=== PATIENT | female | born 1945 | race Caucasian/White ===

== ENCOUNTER 2019-11-08 10:32 | Outpatient (CLI) | payer MEDICARE, BC | END 2019-11-08 23:59 | disposition home or self-care (01) | LOC: CFH 10:32 | PROVIDERS: ATTEND Nurse Practitioner | DX: M81.0 Age-related osteoporosis without current pathological fracture (principal); M85.80 Other specified disorders of bone density and structure, unspecified site | CPT/HCPCS: 77080 ==

== ENCOUNTER → 2021-03-04 | Outpatient (CLI) | payer BC, MEDICARE ==
[~2021-03-04] MED LIST: CHOL10003 PO; Calcium; LEVO50TA PO; MACU HEALTH; THYR30TA PO; Zinc; [UNRECOGNIZED DRUG - OTHER]; [UNRECOGNIZED DRUG - OTHER]; [UNRECOGNIZED DRUG - OTHER]
== END | disposition home or self-care (01) ==
LOC: STAR 08:21
PROVIDERS: ATTEND Orthopaedic Surgery
DX: Z01.818 Encounter for other preprocedural examination (principal); S46.012A Strain of muscle(s) and tendon(s) of the rotator cuff of left shoulder, initial encounter; M75.22 Bicipital tendinitis, left shoulder; R00.1 Bradycardia, unspecified; M75.42 Impingement syndrome of left shoulder; X58.XXXA Exposure to other specified factors, initial encounter; Y93.89 Activity, other specified; Y92.89 Other specified places as the place of occurrence of the external cause; Y99.8 Other external cause status; Z20.822 Contact with and (suspected) exposure to COVID-19
CPT/HCPCS: 93005; U0003; U0005

== ENCOUNTER 2021-03-10 07:24 | Day surgery (SDC) | payer BC, MEDICARE ==
[~2021-03-10] VITALS: Ht 167.6 cm; Wt 71.4 kg
[2021-03-10] MEDS ORDERED: CHLORHEXIDINE 15 ML UDC ONE (07:54)
[2021-03-10] MEDS ORDERED: CHLORHEXIDINE 15 ML UDC PO ONE (08:00)
[2021-03-10] MEDS ORDERED: LACTATED RINGERS 1,000 ML IV SCH (08:00)
[2021-03-10 08:10] VITALS: BP 120/73
[2021-03-10] MEDS ORDERED: FENTANYL PF 250 MCG/5ML ONE (08:47)
[2021-03-10] MEDS ORDERED: MIDAZOLAM 1 MG/ML, 2ML ONE (08:47)
[2021-03-10] MEDS ORDERED: BUPIVACAINE/PF 0.25% ONE (09:24)
[2021-03-10] MEDS ORDERED: EPINEPHRINE 1 MG/ML, 1ML ONE (09:24)
[2021-03-10] MEDS ORDERED: DEXAMETHASONE 4 MG/ML, 1ML ONE (09:37)
[2021-03-10] MEDS ORDERED: CEFAZOLIN 1,000 MG ONE (09:37)
[2021-03-10] MEDS ORDERED: ROCURONIUM 10 MG/ML,10ML ONE (09:37)
[2021-03-10] MEDS ORDERED: ONDANSETRON 2MG/ML, 2ML ONE (09:37)
[2021-03-10] MEDS ORDERED: PROPOFOL 10 MG/ML, 20ML ONE (09:37)
[2021-03-10] MEDS ORDERED: SUCCINYLCHOLINE 20 MG/ML, 10ML ONE (09:37)
[2021-03-10] MEDS ORDERED: EPHEDRINE 50 MG/ML, 1ML ONE (09:37)
[2021-03-10] MEDS ORDERED: PROMETHAZINE 25 MG/ML, 1ML IVPush PRN (10:00)
[2021-03-10] MEDS ORDERED: LABETALOL 5MG/ML, 20ML IV PRN (10:00)
[2021-03-10] MEDS ORDERED: METHOCARBAMOL 1,000 MG in DEXTROSE 5% 100 ML IV PRN (10:00)
[2021-03-10] MEDS ORDERED: hydrALAzine 20 MG/ML, 1ML IV PRN (10:00)
[2021-03-10] MEDS ORDERED: LORazepam 2 MG/ML, 1ML IVPush PRN (10:00)
[2021-03-10] MEDS ORDERED: ACETAMINOPHEN 325 MG TABLET PO PRN (10:00)
[2021-03-10] MEDS ORDERED: OXYcodone 5 MG/5 ML ORAL.SOL UDC PO PRN (10:00)
[2021-03-10] MEDS ORDERED: FENTANYL PF 100 MCG/2ML IV PRN (10:00)
[2021-03-10] MEDS ORDERED: MEPERIDINE/PF 25MG/0.5ML IVPush PRN (10:00)
[2021-03-10] MEDS ORDERED: ONDANSETRON 2MG/ML, 2ML IVPush PRN (10:00)
[2021-03-10] MEDS ORDERED: EPHEDRINE 50 MG/ML, 1ML IVPush PRN (10:00)
[2021-03-10] MEDS ORDERED: HYDROmorphone 1 MG/ML, 1ML INJ IVPush PRN (10:00)
== END 2021-03-10 13:55 | disposition home or self-care (01) ==
LOC: OUT 07:24
PROVIDERS: ATTEND Orthopaedic Surgery
DX: S46.012A Strain of muscle(s) and tendon(s) of the rotator cuff of left shoulder, initial encounter (principal); S43.432A Superior glenoid labrum lesion of left shoulder, initial encounter; M75.42 Impingement syndrome of left shoulder; M75.52 Bursitis of left shoulder; M75.22 Bicipital tendinitis, left shoulder; E07.9 Disorder of thyroid, unspecified; M81.0 Age-related osteoporosis without current pathological fracture; Z79.890 Hormone replacement therapy; Z79.899 Other long term (current) drug therapy; Z88.0 Allergy status to penicillin; Z88.2 Allergy status to sulfonamides; W01.0XXA Fall on same level from slipping, tripping and stumbling without subsequent striking against object, initial encounter; Y93.89 Activity, other specified; Y92.89 Other specified places as the place of occurrence of the external cause; Y99.8 Other external cause status
CPT/HCPCS: 29823; 29826; 29827; 64415; C1713; J0171; J0330; J0690; J1100; J2250; J2405; J2704; J3010; J7120